=== PATIENT | male | born 1940 | race Caucasian/White ===

== ENCOUNTER 2016-09-26 19:35 | Emergency (ER) | payer MEDICARE ==
[2016-09-26 19:41] VITALS: RESP 18
[2016-09-26] MEDS ORDERED: fentaNYL (PF) 50 MCG/ML 2 ML AMP IV ONE ×2 (19:56→21:03)
--- NOTE | 2016-09-26 20:01 | ED ---
Chest Pain HPI - General Chief Complaint: Chest Pain Stated Complaint: Chest Pain Time Seen by Provider: 09/26/16 19:48 Source: patient, family, RN notes reviewed Mode of arrival: wheelchair Limitations: no limitations - History of Present Illness Initial Comments: This is a 76-year-old male with a history of heart disease and diabetes who states he had the onset yesterday of sharp right-sided chest pain last 1-2 hours. He came back today sometime this afternoon before during cutting grass with a riding lawn more. He states it increases with certain movements and deep breathing it sharp in nature moderate to severe at times but shortness of breath no cough or phlegm production no fevers chills or sweats he states it feels like a possible pulled muscle. He has no other complaints at this time MD Complaint: chest pain - Related Data Home Medications Medication Instructions Recorded Confirmed Budesonide-Formot 160-4.5 Mcg 2 puff INHALATION RT-BID 09/26/16 09/26/16 [Symbicort 160-4.5 Mcg Inhaler] Cinnamon Bark [Cinnamon] 1,000 mg PO DAILY 09/26/16 09/26/16 Ezetimibe [Zetia] 10 mg PO DAILY 09/26/16 09/26/16 Furosemide [Lasix] 40 mg PO QID PRN 09/26/16 09/26/16 Insulin Aspart (For Pump) [NovoLOG 0.01 unit SQ-PUMP CONTINUOUS 09/26/16 (For Pump)] Losartan Potassium [Cozaar] 100 mg PO DAILY 09/26/16 09/26/16 Methimazole [Tapazole] 2.5 mg PO Q48H 09/26/16 09/26/16 Metoprolol Succinate [Toprol XL] 50 mg PO DAILY 09/26/16 09/26/16 Otc Neuropathy Formula 2 tab PO DAILY 09/26/16 09/26/16 Potassium Chloride [Klor-Con 20] 20 meq PO DAILY 09/26/16 09/26/16 Rivaroxaban [Xarelto] 15 mg PO HS 09/26/16 09/26/16 Ubidecarenone [Co Q-10] 100 mg PO DAILY 09/26/16 09/26/16 metFORMIN HCL ER [Glucophage Xr] 500 mg PO PC-SUPPER 09/26/16 09/26/16 Allergies Allergy/AdvReac Type Severity Reaction Status Date / Time cephalexin Allergy Rash/Hives Verified 09/26/16 20:26 Iodinated Contrast- Oral and Allergy Rash/Hives Verified 09/26/16 20:26 IV Dye Penicillins Allergy Rash/Hives Verified 09/26/16 20:26 Sulfa (Sulfonamide Allergy Rash/Hives Verified 09/26/16 20:26 Antibiotics) codeine AdvReac Headache/GI Verified 09/26/16 20:26 [From Tylenol-Codeine #3] Upset hydrocodone AdvReac Headache/GI Verified 09/26/16 20:26 Upset oxycodone AdvReac Headache/GI Verified 09/26/16 20:26 Upset [id number] Reductase AdvReac Myalgia Verified 09/26/16 20:26 Inhibitor Review of Systems ROS Statement: Those systems with pertinent positive or pertinent negative responses have been documented in the HPI. ROS Other: All systems not noted in ROS Statement are negative. 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 and T-wave changes some artifact is present) Past Medical History Past Medical History: Myocardial Infarction (NH) Additional Past Medical History / Comment(s): aortic aneursym History of Any Multi-Drug Resistant Organisms: None Reported Past Surgical History: Coronary Bypass/CABG, Orthopedic Surgery Additional Past Surgical History / Comment(s): cyst removals Past Psychological History: No Psychological Hx Reported Smoking Status: Former smoker Past Alcohol Use History: None Reported Past Drug Use History: None Reported General Exam - General Exam Comments Initial Comments: This is a well-developed well-nourished awake alert oriented 3 male Limitations: no limitations General appearance: alert, anxious Head exam: Present: atraumatic, normocephalic, normal inspection Eye exam: Present: normal appearance, PERRL, EOMI. Absent: scleral icterus, conjunctival injection, periorbital swelling ENT exam: Present: normal exam, mucous membranes moist Neck exam: Present: normal inspection. Absent: tenderness, meningismus, lymphadenopathy Respiratory exam: Present: normal lung sounds bilaterally, chest wall tenderness (Reproducible tenderness palpation over the right costal chondral and costosternal junction.). Absent: respiratory distress, wheezes, rales, rhonchi, stridor Cardiovascular Exam: Present: regular rate, normal rhythm, normal heart sounds. Absent: systolic murmur, diastolic murmur, rubs, gallop, clicks GI/Abdominal exam: Present: soft, normal bowel sounds. Absent: distended, tenderness, guarding, rebound, rigid Extremities exam: Present: normal inspection, full ROM, normal capillary refill , pedal edema. Absent: tenderness, joint swelling, calf tenderness Back exam: Present: normal inspection Neurological exam: Present: alert, oriented X3, CN II-XII intact Psychiatric exam: Present: normal affect, normal mood Skin exam: Present: warm, dry, intact, normal color. Absent: rash Course Vital Signs 09/26/16 09/26/16 19:38 20:50 Temperature 97.8 F Pulse Rate 77 83 Respiratory 18 18 Rate Blood Pressure 176/76 145/65 O2 Sat by Pulse 98 97 Oximetry Chest Pain MDM - MDM Reevaluation patient reveals he feels improved the pain is reproducible. Did discuss findings with him x-ray shows some evidence of CHF patient has no new shortness of breath he does have a history of COPD he has no change in his symptoms from what she's had over last several years. No cough or phlegm production at this point he will be discharged I did discuss the findings with him he has pain medication at home he will follow-up with his doctor the current presentation is consistent with costochondritis and chest wall pain. We did discuss admission possibilities patient would prefer to go home. Disposition Clinical Impression: Costalchondritis, Chest wall syndrome Disposition: HOME SELF-CARE Condition: Good Instructions: Costochondritis (ED) Additional Instructions: Use your home pain medications as discussed. Follow-up with her doctor in 1-2 days. Return if any problems Referrals: Leo Paz MD [Primary Care Provider] - 1-2 days
[2016-09-26 20:25] LABS: Basophils % (A) 0 %; CH 29.9; CHCM 32.9; Eosinophils # (A) 0.4 k/uL (0-0.7); Eosinophils % (A) 5 %; HCT 40.2 % (39.0-53.0); HDW 2.86; HGB 13.2 gm/dL (13.0-17.5); Luc # (Auto) 0.21; Luc % (Auto) 3; Lymphocytes # (A) 1.4 k/uL (1.0-4.8); Lymphocytes % (A) 18 %; MCHC 32.9 g/dL (31.0-37.0); MCV 91.2 fL (80.0-100.0); Mean Platelet Volume 7.1; Monocytes # (A) 0.6 k/uL (0-1.0); Monocytes % (A) 7 %; Neutrophils # (A) 5.5 k/uL (1.3-7.7); Neutrophils % (A) 68 %; RBC 4.41 m/uL (4.30-5.90); RDW 14.5 % (11.5-15.5); WBC 8.1 k/uL (3.8-10.6); WBC (Perox) 8.33
[2016-09-26 20:34] LABS: ALT 31 U/L (21-72); AST 22 U/L (17-59); Alkaline Phosphatase 72 U/L (38-126); Anion Gap 11 mmol/L; Blood Urea Nitrogen 29 mg/dL (9-20); Carbon Dioxide 25 mmol/L (22-30); Chloride 103 mmol/L (98-107); Glucose 154 mg/dL (74-99); Magnesium 1.8 mg/dL (1.6-2.3); Non-African American GFR(MDRD) 53 (>60 ml/min/1.73 sqM); Sodium 139 mmol/L (137-145); Total Bilirubin 0.4 mg/dL (0.2-1.3); Total Protein 6.8 g/dL (6.3-8.2)
[2016-09-26 20:44] LABS: INR 1.1 (<1.2); Partial Thromboplastin Time 24.6 sec (22.0-30.0); Prothrombin Time 10.7 sec (9.0-12.0)
[2016-09-26 20:54] LABS: Creatine Kinase 114 U/L (55-170)
--- NOTE | 2016-09-26 21:01 | XR ---
EXAMINATION TYPE: XR chest 2V DATE OF EXAM: 09/26/2016 COMPARISON: July 21, 2016 HISTORY: Chest pain TECHNIQUE: Frontal and lateral views of the chest are obtained. FINDINGS: There is no focal air space opacity, pleural effusion, or pneumothorax seen. Cardiac silho uette is borderline enlarged. There is mild cephalization noted of the pulmonary vessels. There is mi ld interstitial edema. The osseous structures are intact. Sternotomy wires are stable. There has been postoperative changes the right humerus. IMPRESSION: Mild to moderate CHF is noted.
[2016-09-26 21:06] LABS: Creatine Kinase MB 1.7 ng/mL (0.0-2.4); Troponin I <0.012 ng/mL (0.000-0.034)
[2016-09-26 22:24] VITALS: BP 126/75; PULSE 86; TEMP 98
== END 2016-09-26 22:22 | disposition home or self-care (01) ==
LOC: EC 19:35
DX: M94.0 Chondrocostal junction syndrome [Tietze] (principal); I25.2 Old myocardial infarction; J44.9 Chronic obstructive pulmonary disease, unspecified; Z95.1 Presence of aortocoronary bypass graft; Z87.891 Personal history of nicotine dependence; Z88.0 Allergy status to penicillin; Z88.1 Allergy status to other antibiotic agents; Z88.2 Allergy status to sulfonamides; Z91.041 Radiographic dye allergy status; Z88.5 Allergy status to narcotic agent; Z88.8 Allergy status to other drugs, medicaments and biological substances; Z79.51 Long term (current) use of inhaled steroids; Z79.4 Long term (current) use of insulin; Z79.01 Long term (current) use of anticoagulants; Z79.84 Long term (current) use of oral hypoglycemic drugs; Z79.899 Other long term (current) drug therapy
CPT/HCPCS: 36415; 93005; 85379; 83880; 80053; 82550; 82553; 83735; 84484; 85025; 85610; 85730; 71020; 99285; 96374; 96376; J3010

== ENCOUNTER → 2018-09-14 | Outpatient (CLI) | payer MEDICARE ==
--- NOTE | 2018-09-14 18:11 | CT ---
EXAMINATION TYPE: CT sinus wo con DATE OF EXAM: 09/14/2018 COMPARISON: None HISTORY: Acute sinusitis. CT DLP: 622 mGycm CONTRAST: 0 mL of Isovue 300 The paranasal sinuses are examined in the axial plane at 2 mm thick sections. Reconstructed images i n the coronal plane were obtained. There is dental amalgam scatter artifact There is opacification of the left maxillary sinus. Left maxillary wall is absent. Mucosal thickening extends into the right paracentral region. Nasal passage floor. Visualization is recommended there is ethmoid air cell opacification within the anterior and mid lef t ethmoid air cells. The sphenoid sinuses are clear. Left frontal sinus is opacified. Right frontal sinuses are clear. No air-fluid levels are evident. The septum is evaluated. There is septal deviation to the right. Right septal spur is noted. The right ostiomeatal unit is patent. IMPRESSIONS: 1. 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 Destruction should be considered . Mucosal thickening extends from frontal and left ethmoid air cell region through the left maxillary sinus to the nasal passage floor. Direct visualization is recommended. Consider possible neoplasm a s well as chronic sinusitis within the differential. 2. No suspicious acute sinusitis
== END | disposition home or self-care (01) ==
LOC: RADCTMAIN 16:13
PROVIDERS: ATTEND Internal Medicine Infectious Disease
DX: J34.89 Other specified disorders of nose and nasal sinuses (principal); Z98.890 Other specified postprocedural states
CPT/HCPCS: 70486